=== PATIENT | male | born 1970 | race Hispanic/Latino ===

== ENCOUNTER 2023-08-09 15:49 | Inpatient (IN) | payer MEDICAID ==
[~2023-08-09] VITALS: Ht 165.1 cm; Wt 171.1 kg
[2023-08-09 16:17] LABS: BASOPHILS # (AUTO) 0.05 K/uL (0.00-0.20); BASOPHILS % (AUTO) 0.6 % (0.0-5.0); EOSINOPHILS # (AUTO) 0.29 K/uL (0.00-0.70); EOSINOPHILS % (AUTO) 3.5 % (0.0-8.0); HEMATOCRIT 33.6 % (42-54); IMMATURE GRANULOCYTE ABSOLUTE 0.03 K/uL (0-1); LYMPHOCYTES # (AUTO) 1.4 K/uL (1.0-4.8); LYMPHOCYTES % (AUTO) 16.9 % (21.0-51.0); MEAN CORPUSCULAR HGB CONC 30.1 g/dL (32.0-36.0); MEAN CORPUSCULAR VOLUME 76.5 fL (79-99); MONOCYTES # (AUTO) 0.4 K/uL (0.1-1.0); MONOCYTES % (AUTO) 4.8 % (3.0-13.0); NEUTROPHILS # (AUTO) 6.1 K/uL (1.8-7.7); NEUTROPHILS % (AUTO) 73.8 % (40.0-77.0); PLATELET COUNT (AUTO) 251 K/uL (130-400); RED BLOOD CELL COUNT(AUTO) 4.39 MIL/uL (4.50-6.20); RED CELL DISTRIBUTION WIDTH 15.3 % (11.0-15.5); WHITE BLOOD COUNT (AUTO) 8.3 K/uL (4.8-10.8)
[2023-08-09 16:27] LABS: INR 0.98 (0.85-1.15); PROTHROMBIN TIME 11.4 SEC (9.6-11.6)
[2023-08-09 16:33] LABS: CREATININE 2.9 mg/dL (0.5-1.5); POTASSIUM 4.1 mmol/L (3.5-5.1)
[2023-08-09 16:41] LABS: B-TYPE NATRIURETIC PEPTIDE 2650 pg/mL (0-100)
[2023-08-09 16:45] LABS: BILIRUBIN,TOTAL 0.4 mg/dL (0.2-1.0); MAGNESIUM 2.2 mg/dL (1.80-2.40); TOTAL PROTEIN, SERUM 6.3 g/dL (6.0-8.3)
[2023-08-09] MEDS: FUROSEMIDE 40MG VIAL IV ONE (17:22)
[2023-08-09] MEDS ORDERED: FUROSEMIDE 20MG VIAL IV SCH ×2 (18:00→23:00)
[2023-08-09 18:25] LABS: SARS-CoV-2, RNA, NAAT NEGATIVE SARS CoV-2 (NEGATIVE)
[2023-08-09 18:29] LABS: INFLUENZA TYPE A Negative For Type A (NEGATIVE); INFLUENZA TYPE B Negative For Type B (NEGATIVE)
[2023-08-09] MEDS: HYDRALAZINE 20MG/ML VIAL IV PRN (21:40)
[2023-08-09] MEDS ORDERED: FURO40TA5 PO (21:47)
[2023-08-09] MEDS ORDERED: CARV25TA PO (21:47)
[2023-08-09] MEDS ORDERED: SACU1TAB7 PO (21:47)
[2023-08-09] MEDS ORDERED: CLON0.1T PO (21:47)
[2023-08-09] MEDS ORDERED: ATOR40TA71 PO (21:47)
[2023-08-09] MEDS ORDERED: TAMS-1 PO (21:47)
[2023-08-09] MEDS ORDERED: VERI2.5T PO (21:47)
[2023-08-09] MEDS ORDERED: LISI10TA24 PO (21:47)
[2023-08-09] MEDS ORDERED: SPIR50TA5 PO (21:47)
[2023-08-09] MEDS ORDERED: DAPA10TA PO (21:47)
[2023-08-09 23:00] VITALS: O2SAT 97
[2023-08-09 23:15] VITALS: BP 188/107; PULSE 97; RESP 23
[2023-08-10] VITALS (11 sets, daily range): BP systolic 140–184; BP diastolic 78–99; PULSE 76–98; RESP 20–22; O2SAT 96–98
[2023-08-10] MEDS: FUROSEMIDE 40MG VIAL IV SCH (00:23)
[2023-08-10 08:19] LABS: BASOPHILS # (AUTO) 0.04 K/uL (0.00-0.20); BASOPHILS % (AUTO) 0.6 % (0.0-5.0); EOSINOPHILS # (AUTO) 0.23 K/uL (0.00-0.70); EOSINOPHILS % (AUTO) 3.2 % (0.0-8.0); HEMATOCRIT 33.6 % (42-54); IMMATURE GRANULOCYTE ABSOLUTE 0.03 K/uL (0-1); LYMPHOCYTES # (AUTO) 0.8 K/uL (1.0-4.8); MEAN CORPUSCULAR HGB CONC 30.1 g/dL (32.0-36.0); MEAN CORPUSCULAR VOLUME 76.4 fL (79-99); MONOCYTES # (AUTO) 0.3 K/uL (0.1-1.0); MONOCYTES % (AUTO) 4.4 % (3.0-13.0); NEUTROPHILS # (AUTO) 5.7 K/uL (1.8-7.7); NEUTROPHILS % (AUTO) 80.4 % (40.0-77.0); PLATELET COUNT (AUTO) 239 K/uL (130-400); RED CELL DISTRIBUTION WIDTH 15.2 % (11.0-15.5); WHITE BLOOD COUNT (AUTO) 7.1 K/uL (4.8-10.8)
[2023-08-10 08:35] LABS: ALBUMIN 2.2 g/dL (3.5-5.0); BILIRUBIN,TOTAL 0.6 mg/dL (0.2-1.0); CREATININE 2.7 mg/dL (0.5-1.5); POTASSIUM 3.8 mmol/L (3.5-5.1); TOTAL PROTEIN, SERUM 6.4 g/dL (6.0-8.3)
[2023-08-10] MEDS: CARVEDILOL 12.5 MG TABLET PO SCH (08:48)
[2023-08-11] VITALS (8 sets, daily range): BP systolic 124–140; BP diastolic 78–85; PULSE 67–79; RESP 14–22; O2SAT 96–97
[2023-08-11 04:57] LABS: HEMATOCRIT 32.8 % (42-54); MEAN CORPUSCULAR HEMOGLOBIN 22.8 pg (27.0-33.0); MEAN CORPUSCULAR HGB CONC 29.6 g/dL (32.0-36.0); RED BLOOD CELL COUNT(AUTO) 4.26 MIL/uL (4.50-6.20); RED CELL DISTRIBUTION WIDTH 15.2 % (11.0-15.5); WHITE BLOOD COUNT (AUTO) 5.9 K/uL (4.8-10.8)
[2023-08-11 07:35] LABS: CREATININE 3.1 mg/dL (0.5-1.5); POTASSIUM 3.9 mmol/L (3.5-5.1)
[2023-08-11] MEDS: HYDRALAZINE HCL 10 MG TABLET PO SCH (09:00)
[2023-08-11] MEDS: HEPARIN 5,000 UNIT VIAL SQ SCH (09:30)
[2023-08-11] MEDS ORDERED: LIDOCAINE HCL 400MG/20ML VIAL ONE (11:23)
[2023-08-11] MEDS: ISOSORBIDE MONO 30MG SR TAB PO SCH (12:19)
[2023-08-11 14:22] LABS: ABG BASE EXCESS -1.8 mmol/L (-2.0-3.0); ABG HCO3 22.4 mmol/L (21.0-28.0); ABG PCO2 37 mmHg (35-48); ABG PH 7.402 (7.35-7.450); DEVICE COMMENT JOSE RN RR; VENT MODE, BG RA (ROOM AIR)
[2023-08-11] MEDS: FUROSEMIDE 40MG VIAL IV SCH (20:51)
[2023-08-12] VITALS (9 sets, daily range): BP systolic 111–146; BP diastolic 69–85; PULSE 69–81; RESP 16–20; O2SAT 96–97
[2023-08-12 03:57] LABS: HEMATOCRIT 31.6 % (42-54); MEAN CORPUSCULAR HEMOGLOBIN 22.7 pg (27.0-33.0); MEAN CORPUSCULAR HGB CONC 29.1 g/dL (32.0-36.0); RED BLOOD CELL COUNT(AUTO) 4.05 MIL/uL (4.50-6.20)
[2023-08-12 04:13] LABS: BILIRUBIN,TOTAL 0.2 mg/dL (0.2-1.0); POTASSIUM 3.6 mmol/L (3.5-5.1); TOTAL PROTEIN, SERUM 5.8 g/dL (6.0-8.3)
[2023-08-13] VITALS (7 sets, daily range): BP systolic 113–144; BP diastolic 72–86; PULSE 72–82; RESP 18–20; O2SAT 97–98
[2023-08-13 04:28] LABS: HEMATOCRIT 34.3 % (42-54); MEAN CORPUSCULAR HEMOGLOBIN 22.8 pg (27.0-33.0); MEAN CORPUSCULAR HGB CONC 28.9 g/dL (32.0-36.0); MEAN CORPUSCULAR VOLUME 78.9 fL (79-99); RED BLOOD CELL COUNT(AUTO) 4.35 MIL/uL (4.50-6.20); WHITE BLOOD COUNT (AUTO) 6.4 K/uL (4.8-10.8)
[2023-08-13 04:41] LABS: ALBUMIN 2.2 g/dL (3.5-5.0); BILIRUBIN,TOTAL 0.4 mg/dL (0.2-1.0); CREATININE 3.4 mg/dL (0.5-1.5); MAGNESIUM 2.2 mg/dL (1.80-2.40); POTASSIUM 4.1 mmol/L (3.5-5.1); TOTAL PROTEIN, SERUM 6.4 g/dL (6.0-8.3)
[2023-08-13] MEDS: CARVEDILOL 12.5 MG TABLET PO SCH (08:17)
[2023-08-13] MEDS: BACITRACIN 1 EACH PACKET TP ONE (22:27)
[2023-08-13] MEDS: HONEY 1 APPL/ML TUBE TP ONE (22:28)
[2023-08-14] VITALS (9 sets, daily range): BP systolic 118–142; BP diastolic 70–86; PULSE 69–96; RESP 17–21; O2SAT 95–96
[2023-08-14 04:16] LABS: BASOPHILS # (AUTO) 0.03 K/uL (0.00-0.20); BASOPHILS % (AUTO) 0.5 % (0.0-5.0); EOSINOPHILS % (AUTO) 4.6 % (0.0-8.0); HEMATOCRIT 31.7 % (42-54); IMMATURE GRANULOCYTE ABSOLUTE 0.03 K/uL (0-1); LYMPHOCYTES # (AUTO) 1.1 K/uL (1.0-4.8); LYMPHOCYTES % (AUTO) 17.5 % (21.0-51.0); MEAN CORPUSCULAR HEMOGLOBIN 22.7 pg (27.0-33.0); MEAN CORPUSCULAR VOLUME 78.1 fL (79-99); MONOCYTES # (AUTO) 0.5 K/uL (0.1-1.0); MONOCYTES % (AUTO) 6.9 % (3.0-13.0); NEUTROPHILS # (AUTO) 4.6 K/uL (1.8-7.7); PLATELET COUNT (AUTO) 199 K/uL (130-400); RED BLOOD CELL COUNT(AUTO) 4.06 MIL/uL (4.50-6.20); RED CELL DISTRIBUTION WIDTH 15.1 % (11.0-15.5); WHITE BLOOD COUNT (AUTO) 6.5 K/uL (4.8-10.8)
[2023-08-14 04:32] LABS: ALBUMIN 2.1 g/dL (3.5-5.0); BILIRUBIN,TOTAL 0.3 mg/dL (0.2-1.0); CREATININE 3.5 mg/dL (0.5-1.5); MAGNESIUM 2.3 mg/dL (1.80-2.40); POTASSIUM 3.7 mmol/L (3.5-5.1); TOTAL PROTEIN, SERUM 5.8 g/dL (6.0-8.3)
[2023-08-14] MEDS: FUROSEMIDE 40MG VIAL IV SCH (06:03)
[2023-08-14] MEDS: ATORVASTATIN 40 MG TABLET PO SCH (09:19)
[2023-08-14] MEDS: PANTOPRAZOLE 40 MG TAB DR PO SCH (09:19)
[2023-08-14] MEDS: TAMSULOSIN HCL 0.4 MG CAP.ER.24H PO SCH (09:20)
[2023-08-14] MEDS: HONEY 1 APPL/ML TUBE TP SCH (09:24)
[2023-08-14] MEDS: CLINDAMYCIN IVPB 300MG/50ML 50 ML IV SCH (15:13)
[2023-08-15] VITALS (7 sets, daily range): BP systolic 115–144; BP diastolic 69–89; PULSE 71–83; RESP 17–20; TEMP 97.9; O2SAT 96–97
[2023-08-15 03:46] LABS: HEMATOCRIT 29.7 % (42-54); MEAN CORPUSCULAR HGB CONC 30.3 g/dL (32.0-36.0); MEAN CORPUSCULAR VOLUME 75.8 fL (79-99); RED BLOOD CELL COUNT(AUTO) 3.92 MIL/uL (4.50-6.20); WHITE BLOOD COUNT (AUTO) 6.4 K/uL (4.8-10.8)
[2023-08-15 04:10] LABS: ALBUMIN 2.2 g/dL (3.5-5.0); BILIRUBIN,TOTAL 0.9 mg/dL (0.2-1.0); CREATININE 3.4 mg/dL (0.5-1.5); MAGNESIUM 2.2 mg/dL (1.80-2.40); POTASSIUM 3.6 mmol/L (3.5-5.1); TOTAL PROTEIN, SERUM 6.2 g/dL (6.0-8.3)
[2023-08-15] MEDS: ACETAMINOPHEN 500 MG TABLET PO PRN (14:53)
[2023-08-16] VITALS: BP 124/77; PULSE 79; RESP 20
[2023-08-16 04:00] VITALS: BP 128/67; PULSE 80; RESP 18
[2023-08-16 04:57] LABS: BASOPHILS # (AUTO) 0.03 K/uL (0.00-0.20); BASOPHILS % (AUTO) 0.8 % (0.0-5.0); EOSINOPHILS # (AUTO) 0.11 K/uL (0.00-0.70); EOSINOPHILS % (AUTO) 2.8 % (0.0-8.0); HEMATOCRIT 31.4 % (42-54); IMMATURE GRANULOCYTE ABSOLUTE 0.03 K/uL (0-1); LYMPHOCYTES # (AUTO) 0.5 K/uL (1.0-4.8); LYMPHOCYTES % (AUTO) 13.6 % (21.0-51.0); MEAN CORPUSCULAR HEMOGLOBIN 22.6 pg (27.0-33.0); MEAN CORPUSCULAR HGB CONC 29.3 g/dL (32.0-36.0); MEAN CORPUSCULAR VOLUME 77.1 fL (79-99); MONOCYTES # (AUTO) 0.4 K/uL (0.1-1.0); MONOCYTES % (AUTO) 9.7 % (3.0-13.0); NEUTROPHILS # (AUTO) 2.8 K/uL (1.8-7.7); NEUTROPHILS % (AUTO) 72.3 % (40.0-77.0); PLATELET COUNT (AUTO) 138 K/uL (130-400); RED BLOOD CELL COUNT(AUTO) 4.07 MIL/uL (4.50-6.20); WHITE BLOOD COUNT (AUTO) 3.9 K/uL (4.8-10.8)
[2023-08-16 05:27] LABS: ALBUMIN 1.9 g/dL (3.5-5.0); BILIRUBIN,TOTAL 0.4 mg/dL (0.2-1.0); CREATININE 3.4 mg/dL (0.5-1.5); MAGNESIUM 2.3 mg/dL (1.80-2.40); POTASSIUM 3.8 mmol/L (3.5-5.1); TOTAL PROTEIN, SERUM 5.7 g/dL (6.0-8.3)
[2023-08-16 05:35] LABS: B-TYPE NATRIURETIC PEPTIDE 1760 pg/mL (0-100)
[2023-08-16 08:00] VITALS: BP 122/78; PULSE 71; RESP 20; O2SAT 97
[2023-08-16] MEDS: METOLAZONE 2.5 MG TABLET PO SCH (09:09)
[2023-08-16] MEDS: BUMETANIDE 1 MG TAB PO SCH (09:10)
[2023-08-16 12:00] VITALS: BP 120/66; PULSE 76; RESP 20
[2023-08-16 16:00] VITALS: BP 132/82; PULSE 76; RESP 20
[2023-08-16 20:00] VITALS: BP 126/82; PULSE 79; RESP 20; O2SAT 97
[2023-08-17] VITALS (8 sets, daily range): BP systolic 128–157; BP diastolic 72–101; PULSE 67–89; RESP 16–20; O2SAT 97
[2023-08-17] MEDS ORDERED: BUME1TAB6 PO (08:09)
[2023-08-17] MEDS ORDERED: Isosorbide Mono 30MG Sr Tab PO (08:09)
[2023-08-18 03:22] VITALS: BP 125/75; PULSE 83; RESP 20
[2023-08-18 08:00] VITALS: BP 150/92; PULSE 88; RESP 17; O2SAT 97
[2023-08-18 08:36] VITALS: BP 150/92
[2023-08-18] MEDS ORDERED: CLINDAMYCIN IVPB 300MG/50ML 50 ML IV SCH (13:00)
== END 2023-08-18 12:45 | disposition home or self-care (01) | DRG 194 ==
LOC: EDH 15:49 → EDHIP 15:50 → UNDOADMIN 17:33 → EDHIP 21:42 → 2DH 22:36 → 4BH 08-12 08:30
PROVIDERS: ADMIT Internal Medicine; ATTEND Internal Medicine
PROC: 0JPT3XZ Removal of Tunneled Vascular Access Device from Trunk Subcutaneous Tissue and Fascia, Percutaneous Approach (ICD-10-PCS; principal; 2023-08-12)
DX: I13.2 Hypertensive heart and chronic kidney disease with heart failure and with stage 5 chronic kidney disease, or end stage renal disease (principal); E43 Unspecified severe protein-calorie malnutrition; I31.39 Other pericardial effusion (noninflammatory); N18.6 End stage renal disease; Z68.43 Body mass index [BMI] 50.0-59.9, adult; D63.1 Anemia in chronic kidney disease; L03.115 Cellulitis of right lower limb; I50.43 Acute on chronic combined systolic (congestive) and diastolic (congestive) heart failure; E11.22 Type 2 diabetes mellitus with diabetic chronic kidney disease; Z20.822 Contact with and (suspected) exposure to COVID-19; E11.621 Type 2 diabetes mellitus with foot ulcer; I25.5 Ischemic cardiomyopathy; E66.01 Morbid (severe) obesity due to excess calories; E78.5 Hyperlipidemia, unspecified; G47.00 Insomnia, unspecified; I08.1 Rheumatic disorders of both mitral and tricuspid valves; N40.0 Benign prostatic hyperplasia without lower urinary tract symptoms; K59.00 Constipation, unspecified; I25.10 Atherosclerotic heart disease of native coronary artery without angina pectoris; Z91.158 Patient's noncompliance with renal dialysis for other reason; Z91.199 Patient's noncompliance with other medical treatment and regimen due to unspecified reason; Z99.2 Dependence on renal dialysis; Z91.119 Patient's noncompliance with dietary regimen due to unspecified reason; Z95.810 Presence of automatic (implantable) cardiac defibrillator; Z95.5 Presence of coronary angioplasty implant and graft; Z59.00 Homelessness unspecified
CPT/HCPCS: 36415; 36589; 36600; 71045; 73620; 78315; 80048; 80053; 80061; 82306; 82803; 82948; 83036; 83605; 83735; 83880; 84145; 84484; 85025; 85027; 85610; 85730; 86140; 87040; 87635; 87804; 93005; 93306; 93970; 96374; 96375; A9503; G0378; J0360; J1644; J1940; J3490